=== PATIENT | male | born 1960 | race Two or more races ===

== ENCOUNTER 2021-12-16 13:00 | Emergency (ER) | payer OTHER ==
[~2021-12-16] VITALS: Ht 188 cm; Wt 77.1 kg
== END 2021-12-16 15:21 | disposition home or self-care (01) ==
LOC: ER 13:00
DX: T18.8XXA Foreign body in other parts of alimentary tract, initial encounter (principal); X58.XXXA Exposure to other specified factors, initial encounter; Y93.89 Activity, other specified; Y92.511 Restaurant or cafe as the place of occurrence of the external cause; Y99.8 Other external cause status